=== PATIENT | male | born 1985 | race American Indian/Alaskan Native ===

== ENCOUNTER 2021-08-24 18:10 | Emergency (ER) | payer SELFPAY ==
[2021-08-24 18:19] VITALS: BP 141/92
--- NOTE | 2021-08-24 21:47 | Emergency Department Report ---
ED ENT HPI - General Chief complaint: Fall Stated complaint: NOSE INJURY Time Seen by Provider: 08/24/21 21:15 Source: patient Mode of arrival: Ambulatory Limitations: No Limitations - History of Present Illness Initial comments: 36-year-old male with no significant past medical history presents to the hospital with a nasal laceration. Patient fell off a ladder while trying to fix a cabinet in his closet striking his nose. Patient has moderate pain to the tip of his nose area laceration worse with palpation. patient denies LOC. No epistaxis. Tetanus up-to-date. Contrary to triage note patient was not on a 6 foot ladder - Related Data Allergies Allergy/AdvReac Type Severity Reaction Status Date / Time No Known Allergies Allergy Unverified 08/24/21 18:15 ED Dental HPI - General Chief complaint: Fall Stated complaint: NOSE INJURY Time Seen by Provider: 08/24/21 21:15 Source: patient Mode of arrival: Ambulatory Limitations: No Limitations - Related Data Allergies Allergy/AdvReac Type Severity Reaction Status Date / Time No Known Allergies Allergy Unverified 08/24/21 18:15 ED Review of Systems ROS: Stated complaint: NOSE INJURY Other details as noted in HPI Comment: All other systems reviewed and negative ED Physical Exam - General Limitations: No Limitations - Other Other exam information: General: No acute distress Head: Atraumatic Eyes: normal appearance ENT: 1.5 cm laceration to right side of nasal tip without active bleeding. No septal hematoma. No crepitus Neck: Normal appearance, no midline tenderness Chest: Clear to auscultation bilaterally CV: Regular rate and rhythm Abdomen: Soft, normal bowel sounds, nontender, nondistended, no rebound or guarding Back: Normal inspection Extremity: Normal inspection, full range of motion Neuro: Alert O x 3, no facial asymmetry, speech clear, no gross motor sensory deficit Psych: Appropriate behavior Skin: No rash ED Course Vital Signs 08/24/21 18:17 Temperature 98.8 F Pulse Rate 70 Respiratory 18 Rate Blood Pressure 141/92 O2 Sat by Pulse 99 Oximetry - Laceration /Wound Repair Head Wound Location: face Wound Length (cm): 1 (1.5) Wound's Depth, Shape: superficial, flap Wound Explored: clean Irrigated w/ Saline (ccs): 30 Betadine Prep?: Yes Wound Repaired With: Dermabond Layer Closure?: No Sterile Dressing Applied?: No ED Medical Decision Making - Medical Decision Making 36-year-old man presents to the hospital with nasal tip laceration. Wound was approximated and adequate skin closure achieved with Dermabond. Patient informed that his nose may be broken and ENT follow-up may be needed if he develops nasal passages obstruction. Patient does not have a septal hematoma. Tetanus up-to-date. Discharged with follow-up and wound care instructions Critical Care Time: No Critical care attestation.: If time is entered above; I have spent that time in minutes in the direct care of this critically ill patient, excluding procedure time. ED Disposition Clinical Impression: Nasal injury, Nasal laceration Disposition: HOME / SELF CARE / HOMELESS Is pt being admited?: No Does the pt Need Aspirin: No Condition: Stable Instructions: Tissue Adhesive Wound Care Additional Instructions: Take Motrin or Tylenol as needed for pain. There is a chance your nose may be b roken, follow-up with ENT if you develop nasal passage obstruction. Return if symptoms worsen as indicated by your discharge instructions. Referrals: PRIMARY MD NAVNEET [Primary Care Provider] - 3-5 Days JENNI DIAS MD [Staff Physician] - 3-5 Days (ENT) KAZ CELESTE MD [Referring] - 3-5 Days (ENT ) Time of Disposition: 21:47
== END 2021-08-24 21:59 | disposition home or self-care (01) ==
LOC: ED 18:10
DX: S01.21XA Laceration without foreign body of nose, initial encounter (principal); S09.92XA Unspecified injury of nose, initial encounter; X58.XXXA Exposure to other specified factors, initial encounter; Y93.89 Activity, other specified; Y92.89 Other specified places as the place of occurrence of the external cause; Y99.8 Other external cause status
CPT/HCPCS: 99281